=== PATIENT | male | born 1980 | race Caucasian/White ===

== ENCOUNTER 2022-09-24 08:34 | Emergency (ER) | payer OTHER ==
[~2022-09-24] VITALS: Ht 182.9 cm; Wt 92.1 kg
[2022-09-24 08:49] VITALS: BP_SYST 129; PULSE 90; RESP 16; TEMP 97.8; O2SAT 97
--- NOTE | 2022-09-24 09:00 | NUR ---
Pt brought by self, ambulatory, A&Ox4, pt presents to ER with penis pain/swelling ,7/10 after intercourse, skin pink and warm, cap refill <3 ,VSS, respirations even and unlabored.
--- NOTE | 2022-09-24 09:20 | NUR ---
Dr Del Rio evaluating patient at bedside
[2022-09-24 09:49] LABS: BASOPHILS % (AUTO) 0.5 % (0.0-2.0); EOSINOPHILS # (AUTO) 0.4 K/uL (0.0-0.4); EOSINOPHILS % (AUTO) 6.1 % (0.0-4.0); HEMATOCRIT 41.9 % (36-54); LYMPHOCYTES # (AUTO) 1.8 K/uL (1.0-5.5); MEAN CORPUSCULAR HEMOGLOBIN 29 pg (27-31); MEAN CORPUSCULAR HGB CONC 33 % (32-36); MEAN CORPUSCULAR VOLUME 86 fL (79.0-98.0); MONOCYTES # (AUTO) 0.7 K/uL (0.0-1.0); MONOCYTES % (AUTO) 10.4 % (1.7-9.3); NEUTROPHILS # (AUTO) 3.7 K/uL (1.8-7.7); PLATELET COUNT (AUTO) 247 K/uL (130-430); RED BLOOD CELL COUNT(AUTO) 4.86 MIL/uL (4.2-6.2); RED CELL DISTRIBUTION WIDTH 12.4 % (9.0-15.0); WHITE BLOOD COUNT (AUTO) 6.5 K/uL (4.8-10.8)
[2022-09-24 10:13] LABS: ALBUMIN 4.1 g/dL (3.4-4.8); CALCIUM 8.8 mg/dL (8.4-11.0); CREATININE 0.93 mg/dL (0.55-1.30)
[2022-09-24 10:25] LABS: INR 1.1 (0.80-1.20); PROTHROMBIN TIME 10.9 SECS (9.5-12.5)
[2022-09-24] MEDS ORDERED: IBUP-1971 PO (10:45)
[2022-09-24] MEDS ORDERED: TRAM50TA2 PO (10:45)
--- NOTE | 2022-09-24 10:51 | NUR ---
Patient given written and verbal discharge instructions and verbalizes understanding. ER MD discussed with patient the results and treatment provided. Patient in stable condition. ID arm band removed. Rx of Ibuprofen, Tramadol given. Patient educated on pain management and to follow up with PMD. Pain Scale 4/10 . Opportunity for questions provided and answered. Medication side effect fact sheet provided.
[2022-09-24 10:52] VITALS: RESP 16; TEMP 97.8; O2SAT 97
== END 2022-09-24 10:51 | disposition home or self-care (01) ==
LOC: SED 08:34
DX: S30.22XA Contusion of scrotum and testes, initial encounter (principal); Z79.899 Other long term (current) drug therapy; W22.8XXA Striking against or struck by other objects, initial encounter; Y93.89 Activity, other specified; Y92.89 Other specified places as the place of occurrence of the external cause; Y99.8 Other external cause status
CPT/HCPCS: 36415; 76870-TC; 80053; 85025; 85610-TC; 85730-TC; 99284